=== PATIENT | male | born 1995 | race Caucasian/White ===

== ENCOUNTER 2020-11-12 12:08 | Emergency (ER) | payer MEDICAID, SELFPAY ==
[2020-11-12 12:23] VITALS: BP 116/87; PULSE 106; RESP 16; TEMP 38.9; O2SAT 99
--- NOTE | 2020-11-12 12:30 | ED.NAVMDI ---
HPI - Nausea/Vomiting/Diarrhea General Chief complaint: Nausea/Vomiting/Diarrhea Stated complaint: nausea/diarrhea/fever/body aches Time Seen by Provider: 11/12/20 12:30 Source: patient and RN notes reviewed Mode of arrival: ambulatory Limitations: no limitations History of Present Illness HPI Narrative: 25-year-old male presents with concern for nausea without vomiting, diarrhea, body aches, headache. Reports symptoms started Wednesday. Reports taking ibuprofen with mild relief of symptoms. Reports starting today he had mild decrease in sense of taste and smell. He denies cough, shortness of breath. Denies any known sick contacts. MD elicited complaint: nausea, vomiting and diarrhea Review of Systems Review of Systems: Narrative: CONSTITUTIONAL: Reports malaise, fever. Denies chills, sweats EYES: Denies visual changes, redness, or discharge. ENT: Denies rhinorrhea, congestion, sinus pain, otalgia or sore throat. CARDIOVASCULAR: Denies chest pain, palpitations, or edema. RESPIRATORY: Denies cough or dyspnea. GASTROINTESTINAL: Denies abdominal pain, vomiting. Reports nausea and diarrhea GENITOURINARY: Denies dysuria or hematuria. SKIN: Denies rash or itching. MUSCULOSKELETAL: Reports myalgia. NEUROLOGIC: Reports headache. All systems reviewed & are unremarkable except as noted in HPI and below PMFSH Comments At time of signature, agree with nursing past medical, surgical, social and family history. There is no relevant family history pertinent to the presenting complaint Exam Narrative: Exam Narrative: GENERAL: Well-appearing, well-nourished, and in no acute distress. HEAD: Normocephalic, atraumatic. EYES: PERRLA, conjunctivae clear, and EOMI. No nystagmus. ENT: Nares clear. Mucous membranes moist. TM pearly hart with sharp light reflex bilaterally; no tragal tenderness. Oropharynx without erythema or lesions. Tonsils not enlarged and without exudate. NECK: Supple. No lymphadenopathy. CHEST: No respiratory distress. Clear to auscultation. No bony deformities, no asymmetry. Speaks in full sentences. HEART: Regular rate and rhythm. No murmur heard. Normal peripheral pulses. ABDOMEN: Soft, nontender, nondistended, normal active bowel sounds, no palpable masses. SKIN: Warm, dry, no rash. NEURO: Alert and oriented x3. PSYCH: Normal mood and affect Course Course Emergency Course: Patient is aware of diagnosis, understands and agrees to treatment plan. Anticipatory guidance given. Patient agrees to follow-up as directed and is aware of reasons to seek care at the emergency department. Portions of this record may have been created with voice recognition software Vital Signs Vital signs: Vital Signs Temperature 102.0 F H 11/12/20 12:23 Pulse Rate 106 H 11/12/20 12:23 Respiratory Rate 16 11/12/20 12:23 Blood Pressure 116/87 11/12/20 12:23 Pulse Oximetry 99 11/12/20 12:23 Temperature 102.0 F H 11/12/20 12:23 Pulse Rate 106 H 11/12/20 12:23 Respiratory Rate 16 11/12/20 12:23 Blood Pressure 116/87 11/12/20 12:23 Pulse Oximetry 99 11/12/20 12:23 Reviewed. MDM - Nausea/Vomiting/Diarrhea MDM Narrative Medical decision making narrative: Differential diagnosis considered: Garcia virus, strep pharyngitis, allergic rhinitis, upper respiratory tract infection, sinusitis, rhinosinusitis, nasopharyngitis. viral pharyngitis, otitis media, otitis externa, pneumonia, bronchitis, viral cough syndrome, viral syndrome, and influenza. Exam findings show no acute concerns or changes; patient is non-toxic appearing and is in no distress. Patient is appropriate for outpatient treatment and follow-up. Lab Data Attestation: I reviewed the patient's lab results. Labs: Lab Results 11/12/20 Range/Units 12:30 POC SARS CoV-2 Ag Negative (Negative) Influenza A Screen Negative Reference Range: Negative Influenza B Screen Negative
--- NOTE | 2020-11-12 13:03 | PC.NURSE ---
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
[2020-11-13 20:20] LABS: SARS-CoV-2 RNA PCR Negative
== END 2020-11-12 13:12 | disposition home or self-care (01) ==
PROVIDERS: Emergency Provider Nurse Practitioner
DX: B34.9 Viral infection, unspecified (principal); Z20.822 Contact with and (suspected) exposure to COVID-19
CPT/HCPCS: 87081; 87426; 87804; 87880; 99203; C9803; G0463; U0003; U0005

== ENCOUNTER 2021-07-13 22:55 | Emergency (ER) | payer OTHER, SELFPAY ==
[2021-07-13 23:13] VITALS: BP 141/87; PULSE 105; RESP 20; TEMP 38.3; O2SAT 99
[2021-07-14 01:16] VITALS: BP 141/76; PULSE 98; RESP 20; TEMP 39.3; O2SAT 98
[2021-07-14 03:41] VITALS: BP 130/71; PULSE 100; RESP 20; TEMP 37.8; O2SAT 99
[2021-07-14 05:18] VITALS: BP 131/80
[2021-07-14] MEDS: IBUPROFEN 400 MG TABLET PO (05:28)
[2021-07-14] MEDS: ACETAMINOPHEN 325 MG TABLET 650 MG PO (05:28)
[2021-07-14 05:31] VITALS: BP 135/80; PULSE 87; RESP 18; O2SAT 95
--- NOTE | 2021-07-14 05:43 | ED.FEVER ---
HPI - Fever General Chief Complaint: Fever Stated Complaint: fever Time Seen by Provider: 07/14/21 05:14 History of Present Illness HPI Narrative: 26-year-old male presents emerged department for evaluation of cold-like symptoms that started yesterday. Patient states he did receive one of the 2 doses of the vaccine in February. Patient never followed up for his second dose of vaccine. Patient states yesterday when he was getting out of bed he did have generalized fatigue and chills. Patient did not measure his temperature at home. Patient denies any chest pain or shortness of breath. Patient does have some nausea but denies any vomiting or diarrhea. Patient denies any significant past medical history. Related Data Home Medications Medication Instructions Recorded Confirmed No Home Medications 07/13/21 07/13/21 Allergies Allergy/AdvReac Type Severity Reaction Status Date / Time No Known Allergies Allergy Verified 07/13/21 23:16 Review of Systems Review of Systems: All systems reviewed & are unremarkable except as noted in HPI and below Constitutional: Constitutional: Reports no additional constitutional complaints Eyes: Eyes: Reports no additional eye complaints ENT: Reports system reviewed and no additional complaints, except as documented Cardiovascular: Cardiovascular: Reports no additional cardiovascular complaints Respiratory: Respiratory: Reports no additional respiratory complaints Gastrointestinal: Gastrointestinal: Reports no additional gastrointestinal complaints Musculoskeletal: Musculoskeletal: Reports no additional musculoskeletal complaints Integumentary/Breasts: Skin/Breast: Reports system reviewed and no additional complaints, except as docu Neurologic: Reports system reviewed and no additional complaints, except as documented Psychiatric: Psychiatric: Reports no additional psychiatric complaints Endocrine: Endocrine: Reports no additional endocrine complaints Hematologic/Lymphatic: Hematologic/Lymphatic: Reports no additional hematologic/lymphatic complaints Allergic/Immunologic: Allergic/Immunologic: Reports no additional allergic/immunologic complaints Exam Const: General: healthy appearing, no acute distress and alert Nutritional Appearance: well nourished Orientation/consciousness: patient oriented x3 Limitations: altered mental status HENMT: Head: normal to inspection Eyes: Pupils: Equal, round and reactive pupils present Neck: Neck: normal visual inspection Chest: Chest palpation & inspection: normal inspection of the chest and no tenderness Resp: Effort & Inspection: normal respiratory effort Auscultation: clear to auscultation bilaterally Cardio: Rate: regular rate Rhythm: regular rhythm GI: GI Palp: Yes Soft to palpation, No Tenderness to palpation present (GI), No Guarding due to palpation present (GI) and No Palpable mass present Percussion: Yes normal to percussion Auscultation: normal bowel sounds : General: Yes no CVA tenderness Back/Spine/Pelvis: Back: no CVA tenderness Skin: General skin exam: normal color Rashes: no rashes Wounds: no wounds Neuro: General: patient oriented x3, moves all extremities and no focal motor deficits Cranial nerves: Yes Equal, round and reactive pupils present Extrem: General: normal to inspection and no pedal edema Psych: Mental Status: mental status grossly normal Affect: normal affect Attitude: cooperative Course Vital Signs Vital signs: Vital Signs Temperature 101.0 F H 07/13/21 23:13 Pulse Rate 105 H 07/13/21 23:13 Respiratory Rate 20 07/13/21 23:13 Blood Pressure 141/87 H 07/13/21 23:13 Pulse Oximetry 99 07/13/21 23:13 Temperature 98.9 F 07/14/21 06:26 Pulse Rate 67 07/14/21 06:58 Respiratory Rate 18 07/14/21 06:58 Blood Pressure 132/74 07/14/21 06:58 Pulse Oximetry 97 07/14/21 06:58 MDM - Fever Lab Data Labs: Lab Results 07/14/21 Range/Units 05:31
[2021-07-14 06:26] VITALS: TEMP 37.2
[2021-07-14 06:58] VITALS: BP 132/74; PULSE 67; RESP 18; O2SAT 97
[2021-07-14 21:22] LABS: SARS-CoV-2 RNA PCR Positive
== END 2021-07-14 07:00 | disposition home or self-care (01) ==
PROVIDERS: Emergency Provider Emergency Medicine
DX: U07.1 COVID-19 (principal)
CPT/HCPCS: 87804; 99283; A9270; C9803; U0003; U0005